=== PATIENT | male | born 1970 | race Caucasian/White ===

== ENCOUNTER → 2019-05-19 | Outpatient (CLI) | payer MEDICARE ==
[~2019-05-19] MED LIST: CALC200T24 PO; CANNIBUS OIL; CLON0.5T11 PO; ERGO500017 PO; FERR-51 PO; HYDR-3343 PO; LINE600T33 PO; MORP-52 PO; NICO-486 TD
== END | disposition home or self-care (01) ==
LOC: WOUND 12:44
PROVIDERS: ATTEND Internal Medicine
DX: S70.362A Insect bite (nonvenomous), left thigh, initial encounter (principal); L02.416 Cutaneous abscess of left lower limb; L03.116 Cellulitis of left lower limb; N17.0 Acute kidney failure with tubular necrosis; I12.9 Hypertensive chronic kidney disease with stage 1 through stage 4 chronic kidney disease, or unspecified chronic kidney disease; N18.9 Chronic kidney disease, unspecified; G89.29 Other chronic pain; M54.9 Dorsalgia, unspecified; F41.9 Anxiety disorder, unspecified; F32.9 Major depressive disorder, single episode, unspecified; Z87.891 Personal history of nicotine dependence; Z79.1 Long term (current) use of non-steroidal anti-inflammatories (NSAID); W57.XXXA Bitten or stung by nonvenomous insect and other nonvenomous arthropods, initial encounter; Y93.89 Activity, other specified; Y92.89 Other specified places as the place of occurrence of the external cause; Y99.8 Other external cause status
CPT/HCPCS: 97597; G0463

== ENCOUNTER 2019-05-26 15:03 | Outpatient (CLI) | payer MEDICARE | END 2019-05-26 23:59 | disposition home or self-care (01) | LOC: WOUND 15:03 | PROVIDERS: ATTEND Internal Medicine | DX: Z02.9 Encounter for administrative examinations, unspecified (principal) ==

== ENCOUNTER 2019-09-11 15:26 | Outpatient (CLI) | payer MEDICARE ==
[~2019-09-11 15:26] MED LIST changes: +LINE600T15 PO; -LINE600T33 PO
[2019-09-11] MEDS ORDERED: GADOTERATE 10 MMOL/20 ML SYR ONE (16:23)
== END 2019-09-11 23:59 | disposition home or self-care (01) ==
LOC: RAD 15:26
PROVIDERS: ATTEND Pain Medicine Interventional Pain Medicine
DX: M47.816 Spondylosis without myelopathy or radiculopathy, lumbar region (principal); M16.0 Bilateral primary osteoarthritis of hip; K40.90 Unilateral inguinal hernia, without obstruction or gangrene, not specified as recurrent; K57.30 Diverticulosis of large intestine without perforation or abscess without bleeding
CPT/HCPCS: 72158; 72197; A9575